=== PATIENT | female | born 1990 | race Caucasian/White ===

== ENCOUNTER 2016-05-18 06:09 | Inpatient (IN) | payer BC ==
[~2016-05-18] VITALS: Ht 160 cm; Wt 133.5 kg
[2016-05-18 06:24] VITALS: Ht 160 cm; Wt 133.5 kg
[2016-05-18 06:26] VITALS: BP 124/78; PULSE 110; RESP 18
[2016-05-18] MEDS ORDERED: PREN1TAB62 PO (06:28)
[2016-05-18] MEDS ORDERED: FERR325C PO (06:29)
[2016-05-18] MEDS ORDERED: CALC600T11 PO (06:29)
[2016-05-18] MEDS ORDERED: LACTATED RINGER'S 1,000 ML IV PRN (07:57)
[2016-05-18] MEDS ORDERED: CARBOPROST 250 MCG INJ IM PRN (08:00)
[2016-05-18] MEDS ORDERED: METHYLERGONOVINE 0.2 MG INJ IM PRN (08:00)
[2016-05-18] MEDS ORDERED: OXYTOCIN 30 UNITS/LR 500 ML IV SCH ×3 (08:00)
[2016-05-18] MEDS ORDERED: OXYTOCIN 30 UNITS/LR 500 ML IV PRN (08:00)
[2016-05-18] MEDS ORDERED: MISOPROSTOL 200 MCG TAB PR PRN (08:00)
[2016-05-18] MEDS ORDERED: BUTORPHANOL 2 MG INJ IV PRN (08:00)
[2016-05-18] MEDS ORDERED: IBUPROFEN 600 MG TAB PO PRN (08:00)
[2016-05-18] MEDS ORDERED: LIDOCAINE 1% (MPF) 30 ML INJ INJ PRN (08:00)
[2016-05-18] MEDS ORDERED: AMPICILLIN 2 GM/NS (PMX) 100 ML IV ONE (08:00)
[2016-05-18] MEDS: LACTATED RINGER'S 1,000 ML IV SCH ×3 (08:17→23:00)
[2016-05-18 08:46] LABS: BASOPHIL # 0.1 10^3/ul (0.0-0.1); BASOPHILS % 0.5 % (0.0-2.0); EOSINOPHILS % 0.3 % (0.0-7.0); HEMATOCRIT 39.9 % (37.0-47.0); HEMOGLOBIN 13.4 g/dl (12.0-16.0); LYMPHOCYTES # 1.9 10^3/ul (0.8-2.9); LYMPHOCYTES % 16.5 % (15.0-51.0); MEAN CORPUSCULAR HEMOGLOBIN 29.4 pg (29.0-33.0); MEAN CORPUSCULAR HGB CONC 33.6 g/dl (32.0-37.0); MEAN CORPUSCULAR VOLUME 87.7 fl (82.0-101.0); MEAN PLATELET VOLUME 8.3 fl (7.4-10.4); MONOCYTE # 0.7 10^3/ul (0.3-0.9); MONOCYTES % 6.4 % (0.0-11.0); NEUTROPHILS % 76.3 % (39.0-77.0); PLATELET COUNT 238 10^3/UL (140-440); RED BLOOD COUNT 4.54 10^6/ul (4.20-5.40); RED CELL DISTRIBUTION WIDTH 14.5 % (11.5-14.5); UNCORRECTED WBC 11.8 10^3/ul (4.8-10.8); WHITE BLOOD COUNT 11.8 10^3/ul (4.8-10.8)
[2016-05-18 08:48] LABS: CONDITION 1; LH ANALYZER COMMENTS 1
--- NOTE | 2016-05-18 08:50 | HP ---
Date/Time of Note Date/Time of Note DATE: 05/18/16 TIME: 08:43 OB - History Hx of Present Free Text/Dictation at 38 weeks in labor Care: Good Care Ultrasounds: Normal mid trimester US Obstetrical Complications: None Medical Complications: None Past Family/Social History * Past Medical, Surgical, Family and Obstetric Histories reviewed from chart. OB Admission Exam Vital Signs Vital Signs Vital Signs Date Time Temp Pulse Resp B/P Pulse Ox O2 Delivery O2 Flow Rate FiO2 05/18/16 06:26 98.5 110 18 124/78 Room Air Physical Exam HEENT: WNL Heart: Rhythm Normal Lungs: Clear, Equal Abdomen: WNL Extremities: Normal Reflexes: Normal Cervical Dilatation: 3cm Effacement: 50% Station: -1 Membranes: Ruptured Amniotic Fluid: Clear Heart Rate: 130's Accelerations: Accelerations Present Decelerations: No Decelerations Varibility: Marked Intensity: Moderate OB Assessment/Plan Reason for admission: active labor Plan: Expectant Management STEPHANY ISBELL MD May 18, 2016 08:50
[2016-05-18 08:56] LABS: ALBUMIN 3.3 g/dl (3.3-4.9)
[2016-05-18 08:57] LABS: POTASSIUM 4.6 mmol/L (3.5-5.1)
[2016-05-18 08:59] LABS: BILIRUBIN,INDIRECT 0.1 mg/dl (0-1.1); BILIRUBIN,TOTAL 0.1 mg/dl (0.2-1.3); CREATININE 0.56 mg/dl (0.44-1.00)
[2016-05-18 09:00] LABS: ALBUMIN/GLOBULIN RATIO 1.03; CALCIUM 9.7 mg/dl (8.4-10.2); TOTAL PROTEIN 6.5 g/dl (6.1-8.1); URIC ACID 4.9 mg/dl (3.1-7.9)
[2016-05-18 09:01] LABS: INR 0.99; PROTIME 13.1 Sec (12.2-14.2)
[2016-05-18 09:02] LABS: PARTIAL THROMBOPLASTIN TIME 30.6 Sec (25.0-35.0)
[2016-05-18] MEDS ORDERED: FENTAnyl 2MCG/ML-ROPIV 0.2% 100 ML ONE (09:59)
[2016-05-18] MEDS ORDERED: FENTAnyl 50 MCG/ML VIAL ONE (10:00)
[2016-05-18] MEDS: AMPICILLIN 1 GM/NS (PMX) 50 ML IV SCH ×4 (11:30→20:08)
[2016-05-18] MEDS ORDERED: FENTAnyl 2MCG/ML-ROPIV 0.2% 100 ML BAG EPI SCH (11:30)
[2016-05-18] MEDS ORDERED: NALOXONE (0.4 MG/ML) INJ IV PRN (11:30)
--- NOTE | 2016-05-18 11:48 | RADRPT ---
PROCEDURE: US OB CLINICAL INDICATION: r/o macrosomia SEE NOTES TECHNIQUE: Multiple sonographic images of the pelvis were obtained. The images were reviewed on a PACS workstation. COMPARISON: None FINDINGS: The cervix is not well visualized. There is a single viable intrauterine gestation. Cardiac activity is present with 146 beats per minute. There is a vertex presentation. The placenta is anterior. There is no evidence for an abruption or placenta previa. There is a markedly low amount of amniotic fluid with an KELVIN = 3.7 cm. Measurements were made in order to determine age. The results are as follows (cm): AC =34.83 FL =7.80 Estimated gestational age by ultrasound of approximately 39 weeks, 2 days. The estimated date of delivery by ultrasound is 05/23/2016. Reported gestational age by LMP of approximately 38 weeks, 6 days. The reported date of delivery by LMP is 05/26/2016. EFW = 3710 grams (76th percentile) IMPRESSION: Single viable intrauterine gestation of approximately 39 weeks, 2 days . The estimated date of delivery is 05/23/2016 . Dating by ultrasound is within 3 days of dating by LMP. Marked oligohydramnios with an amniotic fluid index of 3.7 cm. Estimated weight in the 76th percentile. Limited study without measurement of the biparietal diameter or head circumference. The cervix is not well visualized. RPTAT: EE Physician Dory Date Time Electronically viewed and signed by Physician Dory on 05/18/2016 11:47 /
[2016-05-18 12:21] LABS: ADD UMIC YES; URINE BILIRUBIN (Dip) NEGATIVE (NEGATIVE); URINE BLOOD (Dip) 3+ (NEGATIVE); URINE COLOR LT. YELLOW (YELLOW); URINE GLUCOSE (Dip) NEGATIVE (NEGATIVE); URINE KETONES (Dip) NEGATIVE (NEGATIVE); URINE LEUKOCYTE ESTERASE (Dip) NEGATIVE (NEGATIVE); URINE NITRITE (Dip) NEGATIVE (NEGATIVE); URINE TOTAL PROTEIN (Dip) NEGATIVE (NEGATIVE); URINE UROBILINOGEN (Dip) 0.2 E.U./dL (0.1-1.0)
[2016-05-18 12:49] LABS: BACTERIA,URINE FEW; SQUAMOUS EPITHELIAL CELL,UR FEW
[2016-05-18] MEDS ORDERED: SOD CHLORIDE 0.9% 1,000 ML IV SCH (16:00)
[2016-05-19] VITALS (12 sets, daily range): BP systolic 111–147; BP diastolic 57–88; PULSE 89–110; RESP 18–21
[2016-05-19] MEDS: AMPICILLIN 1 GM/NS (PMX) 50 ML IV SCH ×2 (00:31→04:07)
[2016-05-19] MEDS: LACTATED RINGER'S 1,000 ML IV SCH ×4 (03:26→22:35)
[2016-05-19] MEDS ORDERED: CEFAZOLIN 2 GM/50 ML (PMX) 0 ML IVPB ONE (07:28)
[2016-05-19] MEDS ORDERED: LACTATED RINGER'S 1,000 ML IV SCH (07:32)
[2016-05-19] MEDS ORDERED: CEFAZOLIN 2 GM/50 ML (PMX) 50 ML IVPB ONE (07:36)
[2016-05-19] MEDS ORDERED: CEFAZOLIN 2 GM/50 ML (PMX) 50 ML IV SCH (08:00)
[2016-05-19] MEDS ORDERED: OXYTOCIN 30 UNITS/LR 500 ML IV SCH (08:00)
[2016-05-19] MEDS ORDERED: LIDOCAINE 2%/EPI 30 ML INJ ONE (08:05)
[2016-05-19] MEDS ORDERED: morphine SULFATE/PF (10 MG/10 ML) INJ ONE (08:05)
[2016-05-19] MEDS ORDERED: FENTAnyl 50 MCG/ML VIAL ONE (08:05)
[2016-05-19] MEDS ORDERED: NA BICARBONATE 8.4% 50 ML SYG ONE (08:05)
--- NOTE | 2016-05-19 08:19 | OPR ---
Operative Report Planned Procedure Procedure date May 19, 2016 Performed by: STEPHANY ISBELL MD Assisting provider: ESTRELLA ROSE MD Anesthesia Type: epidural Procedure Description Under satisfactory [] anesthesia, the patient was prepped and draped and placed in a supine position, tilted to the left. Pfannenstiel incision was made, carried through the subcutaneous tissue. Bleeders brought under control with electrocautery. Fascia incised to the length of the incision. Rectus muscles from the fascia, divided midline. Peritoneum exposed, entered through a transverse incision. Exploration of abdomen revealed gravid uterus. Bladder flap was developed. Transverse incision was made in the lower segment of the uterus. Amniotic sac ruptured. [] amniotic fluid noted. [] Nasal oropharyngeal suction was performed. The baby was handed to the team for immediate attention. The placenta was delivered manually intact. Uterine cavity was cleaned with wet sponge and drainage established. Uterus closed in 2 layers using [] in continuous fashion. Peritoneal cavity irrigated with warm saline. Sponge, needle and instrument count reported to be correct. Abdominal peritoneum closed with [] continuously. Rectus muscle approximated with []. Fascia closed with [], and skin closed with bob. Estimated blood loss []mL. Urine bag contained []mL of urine Post-Procedure Findings: Live Baby [], Apgars [] and [], weight [], position [], [] presentation []cord. Pt Condition post procedure: stable Disposition: PACU Physician Certification I, the undersigned physician, hereby certify that I have discussed the procedure described in this consent form with this patient (or the patient's legal personal service representative), including: * The risk and benefits of the procedure; * Any adverse reactions that may reasonably be expected to occur; * Any alternative efficacious methods of treatment which may be medically viable ; * The potential problems that may occur during recuperation; * Potential for blood transfusion and associated risks/benefits; and * Any research or economic interest I may have regarding this treatment. I further certify that the patient/legally responsible person was encouraged to ask question and that all questions were answered. STEPHANY ISBELL MD May 19, 2016 08:19
[2016-05-19] MEDS ORDERED: ONDANSETRON 4 MG INJ IV PRN ×2 (08:30)
[2016-05-19] MEDS ORDERED: MEPERIDINE 25 MG INJ IV PRN (08:30)
[2016-05-19] MEDS ORDERED: PROCHLORPERAZINE 10 MG INJ IV PRN ×2 (08:30)
[2016-05-19] MEDS ORDERED: ZOLPIDEM 5 MG TAB PO PRN (08:30)
[2016-05-19] MEDS ORDERED: NALOXONE (0.4 MG/ML) INJ IV PRN (08:30)
[2016-05-19] MEDS ORDERED: FENTAnyl 50 MCG/ML VIAL IV PRN (08:30)
[2016-05-19] MEDS ORDERED: HYDROmorphONE (0.2 MG/ML) 10ML SYG IV PRN ×3 (08:30)
[2016-05-19] MEDS ORDERED: KETOROLAC 30 MG INJ IV PRN ×2 (08:30)
[2016-05-19] MEDS ORDERED: HYDROmorphONE 1 MG/ML SYG IV PRN (08:30)
[2016-05-19] MEDS ORDERED: DIPHENHYDRAMINE 50 MG INJ IV PRN ×2 (08:30)
[2016-05-19] MEDS ORDERED: PHENYLephrine (100 MCG/ML) 5ML SYG ONE ×2 (08:31→08:41)
[2016-05-19] MEDS ORDERED: ONDANSETRON 4 MG INJ ONE (08:32)
--- NOTE | 2016-05-19 10:33 | DELSUM ---
Delivery Summary A-C Datetime Report Generated by CPN: 05/19/2016 10:33 DELIVERY PERSONNEL Dividend Deposit Entry Clerk: Ogbodu, Christy MATERNAL INFORMATION Delivery Anesthesia: Epidural Medications in Delivery: LR 500ML PITOCIN 30 UNITS Estimated Blood Loss (ml): 600 Placenta Cultured: Yes Maternal Complications: None RN Comments: PRIMARY C/S FOR FAILURE TO PROGRESS LABOR SUMMARY EDC: 05/24/2016 00:00 No. Babies in Womb: 1 Attempted: No Labor Anesthesia: Epidural/ SPINAL LABOR INFORMATION Reason for Induction: Other Reason for Induction- Other: 39.1 Onset of Labor: 05/18/2016 07:00 Onset of Labor: 05/18/2016 07:00 Oxytocin: Induction Group B Beta Strep: Positive Group B Beta Strep: Positive Antibiotics # of Doses: 6 Antibiotics Time of Last Dose: 0400 Steroids Given: None Reason Steroids Not Administered: Not Applicable MEMBRANES Membranes Rupture Method: Artificial Rupture of Membranes: 05/18/2016 08:34 Length of Rupture (hr): 23.88 Amniotic Fluid Color: Clear Amniotic Fluid Color: Clear Amniotic Fluid Amount: Moderate Amniotic Fluid Amount: Moderate Amniotic Fluid Odor: Normal Amniotic Fluid Odor: Normal STAGES OF LABOR Stage 3 hr: 0 Stage 3 min: 0 Total Time in Labor hr: 25 Total Time in Labor hr: 25 Total Time in Labor min: 27 Total Time in Labor min: 27 VAGINAL DELIVERY Episiotomy: None Laceration Extension: N/A CSECTION DELIVERY Primary Indication: Failure of Descent CSection Urgency: Elective CSection Incidence: Primary Labor: Labor Elective: Elective CSection Incision: Lower Uterine Transverse BABY A INFORMATION Infant Delivery Date/Time: 05/19/2016 08:27 Method of Delivery: Born in Route : No : N/A Forceps: N/A Vacuum Extraction: N/A Shoulder Dystocia : N/A SHOULDER DYSTOCIA BABY A Delivery Date/Time: 05/19/2016 08:27 PRESENTATION/POSITION BABY A Presentation: Cephalic Presentation: Cephalic Presentation: Cephalic Presentation: Cephalic Cephalic Presentation: Vertex Breech Presentation: N/A PLACENTA INFORMATION BABY A Placenta Delivery Time : 05/19/2016 08:27 Placenta Method of Delivery: Manual Removal Placenta Status: Delivered SCORES BABY A Heart Rate 1 min: >100 bpm Resp Effort 1 min: Good Cry Reflex Irritability 1 min: Cough/Sneeze/Pulls Away Muscle Tone 1 min: Active Motion Color 1 min: Blue/Pale Resuscitation Effort 1 min: Tactile Stimulation SCORE 1 MIN: 8 Heart Rate 5 min: >100 bpm Resp Effort 5 min: Good Cry Reflex Irritability 5 min: Cough/Sneeze/Pulls Away Muscle Tone 5 min: Active Motion Color 5 min: Body [place], Extremit Blue Resuscitation Effort 5 min: Tactile Stimulation SCORE 5 MIN: 9 INFORMATION BABY A Gestational Age at Delivery: 39.2 Gestational Status: Full Term- 39- 40.6 Weeks Outcome : Liveborn Condition : Stable Sex: Male IDENTIFICATION/MEDS BABY A ID Band Number: [id number] ID Band Location: Right Arm Sensor Applied: Yes Sensor Number: [id number] Sensor Location : Cord Clamp Vitamin K Given : Not Given Erythromycin Given: Not Given WEIGHT/LENGTH BABY A Birthweight (gm): 3655 Infant Weight (lb): 8 Weight (oz): 1 Infant Length (in): 21.00 Length (cm): 53.34 CORD INFORMATION BABY A No. Cord Vessels: 3 Nuchal Cord : N/A Cord Blood Taken: No Banking/Donate Info: NO Infant Suction: Mouth; Nose ASSESSMENT BABY A Infant Complications: Decreased Variability; Multiple Variable Decels; Oligohydramnios Physical Findings at Delivery: Caput Succedaneum; Molding of the Head Infant Respirations: Appears Normal Mill Oiler/ALS Called : No Infant Care By: Aida LEONARD Transferred To: Remains with Mother
--- NOTE | 2016-05-19 10:35 | OPRPT ---
Intraop Record Datetime Report Generated by CPN: 05/19/2016 10:34 Datetime: 05/19/2016 09:30 Sequential Compression Device: Yes Datetime: 05/19/2016 09:15 Sequential Compression Device: Yes Datetime: 05/19/2016 09:00 Sequential Compression Device: Yes Datetime: 05/19/2016 08:30 OR Number: 2 TIMES/PROCEDURE Arrive OR: 05/19/2016 08:00 Depart OR: 05/19/2016 09:04 Anesthesia Start: 05/19/2016 08:04 Anesthesia End: 05/19/2016 09:04 Surgery Start: 05/19/2016 08:25 Surgery End: 05/19/2016 08:45 Preoperative Dx: 39.2 PRIMARY C/S FOR FAILURE TO PROGRESS Surgical Procedure: Section Surgical Procedure Other: NONE Postoperative Dx: SAME Uterine Incision: 05/19/2016 08:26 PERSONNEL Surgeon: Eliel Fitzpatrick Scrub: Gonzalo Cohen Anesthesia Care Provider: Ashtyn Dash Infant Care: See Delivery Summary for Infant Care Providers Anesthesia Type: Spinal ASA Level: II RISK FOR INJURY Mode of Arrival: Bed Procedure Time Out: Correct Patient Identity; Correct Side and Site are Marked (if applicable); Acc urate Procedure Consent Form; Agreement on Procedure to be Done; Correct Patient Position; Addressed Need to Administer Antibiotics or Fluids for Irrigation; Safety Precautions Based on Patient Histor y or Medication Use; Allergies Reviewed Preoperative Information: Preoperative Checklist Reviewed; Allergies Reviewed; NPO Status Verified RISK FOR ANXIETY/KNOW DEFICIT Emotional Status: Calm/Relaxed Interventions: Provided Education Based on Age and Identified Needs; Communicated Patient Concerns to Appropriate Members of the Health Care Team; Explained Sequence of Events and Perioperative Routi ne; Evaluated Response to Instructions RISK FOR PAIN Pain Teaching: Instructed on Pain Scale Pain Scale: 5.0 Pain Location: PERINUEM PREOPERATIVE OUTCOMES Preoperative Outcomes: Verbalizes/Indicates Decreased Anxiety, Ability to [place], Understanding of Pr ocedure and Sequence of Events. Questions Answered; Demonstrates Adequate Pain Management; Verbaliz es Comfort Related to Transfer/Transport RISK FOR INFECTION Skin Pre-Operative Site: Intact Clip: Clip Clip Location: LOWER ABDOMEN Prep: Yes Prep By: MAGDALENE RN Prep Solution: Chlorohexadine Catheter: Price Catheter Size: 16 Catheter Inserted By: MAGDALENE Surgical Wound Class: [id number] Dressing Type: Secured Gauze Other Dressing Types: 4X4,ABD PAD, PAPER TAPE Risk for Impaired Skin Integrity Position in OR: Supine Bony Prominences Protection: Arms Tucked/Padded Risk for Hypothermia Warming Interventions: Warm Pryor(s); Warm Irrigation Warming Unit Temp Settin.0 Warming Device Number: [id number] Warming [place] Applied by: Risk for Injury Safety Straps Applied: Legs Sequential Compression Device: Yes Electrosurgical Unit: Yes Electrosurgical Unit Number: [id number] exp Bipolar Number: [id number] Coag Number: [id number] Cut Number: 55 1st Count Sponge Count: Correct Needle Count: Correct Blade Count: Correct Instrument Count: Correct 2nd Count Sponge Count: Correct Needle Count: Correct Blade Count: Correct Instrument Count: Correct 3rd Count Sponge Count: Correct Needle Count: Correct Blade Count: Correct Instrument Count: Not Done Final Count Sponge Count 4: Correct Needle Count 4: Correct Blade Count 4: Correct Surgeon Acknowledged Count: Yes Final Count Resolution: Count Correct Intraoperative Data Equipment: Non-Invasive Blood Pressure; Pulse Oximeter; EKG; Temp Monitor; Warming [place] Blood Products Given: N/A Implants/Prosthesis Implants/Prosthesis: N/A Grafts: N/A Irrigation Irrigants: NACL; Sterile H2O Irrigation Amount: 2L Specimens Specimens: Yes Specimen Type: Placenta Disposition: PATHOLOGY Postoperative Skin: Warm; Dry Pain Scale: 0 Condition: Awake; Alert Temperature: 97.9 Operative Outcomes: Patient's Surgery Performed Using Aseptic Technique and in a Manner to Prevent Cross-Contamination; Skin Remains Smooth, Intact, Non-reddened, Non-irritated, Free of Bruising; Cor e Body Temperature Remains in Expected Range Transfer To: Other Other: L_D Datetime: 05/18/2016 06:30 Drug Allergies/Reactions: No Known Allergy (05/18/2016) Datetime: 05/18/2016 06:28 Food Allergies/Reactions: NONE Latex Allergies/Reactions: No Latex Allergies
--- NOTE | 2016-05-19 10:35 | DELSUM ---
Delivery Summary A-C Datetime Report Generated by CPN: 05/19/2016 10:34 DELIVERY PERSONNEL Manager Pet: Ogbodu, Christy MATERNAL INFORMATION Delivery Anesthesia: Epidural Medications in Delivery: LR 500ML PITOCIN 30 UNITS Estimated Blood Loss (ml): 600 Placenta Cultured: Yes Maternal Complications: None RN Comments: PRIMARY C/S FOR FAILURE TO PROGRESS LABOR SUMMARY EDC: 05/24/2016 00:00 No. Babies in Womb: 1 Attempted: No Labor Anesthesia: Epidural/ SPINAL LABOR INFORMATION Reason for Induction: Other Reason for Induction- Other: 39.1 Onset of Labor: 05/18/2016 07:00 Onset of Labor: 05/18/2016 07:00 Oxytocin: Induction Group B Beta Strep: Positive Group B Beta Strep: Positive Antibiotics # of Doses: 6 Antibiotics Time of Last Dose: 0400 Steroids Given: None Reason Steroids Not Administered: Not Applicable MEMBRANES Membranes Rupture Method: Artificial Rupture of Membranes: 05/18/2016 08:34 Length of Rupture (hr): 23.88 Amniotic Fluid Color: Clear Amniotic Fluid Color: Clear Amniotic Fluid Amount: Moderate Amniotic Fluid Amount: Moderate Amniotic Fluid Odor: Normal Amniotic Fluid Odor: Normal STAGES OF LABOR Stage 3 hr: 0 Stage 3 min: 0 Total Time in Labor hr: 25 Total Time in Labor hr: 25 Total Time in Labor min: 27 Total Time in Labor min: 27 VAGINAL DELIVERY Episiotomy: None Laceration Extension: N/A CSECTION DELIVERY Primary Indication: Failure of Descent CSection Urgency: Elective CSection Incidence: Primary Labor: Labor Elective: Elective CSection Incision: Lower Uterine Transverse BABY A INFORMATION Infant Delivery Date/Time: 05/19/2016 08:27 Method of Delivery: Born in Route : No : N/A Forceps: N/A Vacuum Extraction: N/A Shoulder Dystocia : N/A SHOULDER DYSTOCIA BABY A Delivery Date/Time: 05/19/2016 08:27 PRESENTATION/POSITION BABY A Presentation: Cephalic Presentation: Cephalic Presentation: Cephalic Presentation: Cephalic Cephalic Presentation: Vertex Breech Presentation: N/A PLACENTA INFORMATION BABY A Placenta Delivery Time : 05/19/2016 08:27 Placenta Method of Delivery: Manual Removal Placenta Status: Delivered SCORES BABY A Heart Rate 1 min: >100 bpm Resp Effort 1 min: Good Cry Reflex Irritability 1 min: Cough/Sneeze/Pulls Away Muscle Tone 1 min: Active Motion Color 1 min: Blue/Pale Resuscitation Effort 1 min: Tactile Stimulation SCORE 1 MIN: 8 Heart Rate 5 min: >100 bpm Resp Effort 5 min: Good Cry Reflex Irritability 5 min: Cough/Sneeze/Pulls Away Muscle Tone 5 min: Active Motion Color 5 min: Body [place], Extremit Blue Resuscitation Effort 5 min: Tactile Stimulation SCORE 5 MIN: 9 INFORMATION BABY A Gestational Age at Delivery: 39.2 Gestational Status: Full Term- 39- 40.6 Weeks Outcome : Liveborn Condition : Stable Sex: Male IDENTIFICATION/MEDS BABY A ID Band Number: [id number] ID Band Location: Right Arm Sensor Applied: Yes Sensor Number: [id number] Sensor Location : Cord Clamp Vitamin K Given : Not Given Erythromycin Given: Not Given WEIGHT/LENGTH BABY A Birthweight (gm): 3655 Infant Weight (lb): 8 Weight (oz): 1 Infant Length (in): 21.00 Length (cm): 53.34 CORD INFORMATION BABY A No. Cord Vessels: 3 Nuchal Cord : N/A Cord Blood Taken: No Banking/Donate Info: NO Infant Suction: Mouth; Nose ASSESSMENT BABY A Infant Complications: Decreased Variability; Multiple Variable Decels; Oligohydramnios Physical Findings at Delivery: Caput Succedaneum; Molding of the Head Infant Respirations: Appears Normal Single Needle Operator/ALS Called : No Infant Care By: Aida LEONARD Transferred To: Remains with Mother
[2016-05-19] MEDS ORDERED: METHYLERGONOVINE 0.2 MG INJ IM PRN (12:30)
[2016-05-19] MEDS ORDERED: ACETAMINOPHEN/CODEINE #3 TAB PO PRN (12:30)
[2016-05-19] MEDS ORDERED: OXYTOCIN 30 UNITS/LR 500 ML IV PRN (12:30)
[2016-05-19] MEDS ORDERED: CARBOPROST 250 MCG INJ IM PRN (12:30)
[2016-05-19] MEDS ORDERED: LANOLIN 7 GM TUBE TOP PRN (12:30)
[2016-05-19] MEDS ORDERED: NA PHOSPHATE/BIPHOS 133 ML ENEMA PR PRN (12:30)
[2016-05-19] MEDS ORDERED: MISOPROSTOL 200 MCG TAB PR PRN (12:30)
[2016-05-19] MEDS ORDERED: NACL 0.9% 3 ML SYG IV SCH (12:30)
[2016-05-19] MEDS: OXYTOCIN 30 UNITS/LR 500 ML IV SCH ×2 (12:44→17:26)
[2016-05-19] MEDS: IBUPROFEN 800 MG TAB PO SCH ×2 (14:00→22:00)
[2016-05-19] MEDS: HYDROmorphONE 1 MG/ML SYG IV PRN (14:09)
[2016-05-20] VITALS: BP 128/76; PULSE 112; RESP 18
[2016-05-20 03:59] VITALS: BP 122/75; PULSE 108
[2016-05-20] MEDS: IBUPROFEN 800 MG TAB PO SCH ×3 (06:00→22:14)
[2016-05-20] MEDS: HYDROmorphONE 1 MG/ML SYG IV PRN (06:55)
[2016-05-20] MEDS: LACTATED RINGER'S 1,000 ML IV SCH ×2 (07:01→20:18)
[2016-05-20 07:38] LABS: EOSINOPHILS % 0.2 % (0.0-7.0); HEMATOCRIT 32.4 % (37.0-47.0); HEMOGLOBIN 10.9 g/dl (12.0-16.0); LYMPHOCYTES % 6.3 % (15.0-51.0); MEAN CORPUSCULAR HEMOGLOBIN 29.6 pg (29.0-33.0); MEAN CORPUSCULAR HGB CONC 33.8 g/dl (32.0-37.0); MEAN CORPUSCULAR VOLUME 87.7 fl (82.0-101.0); MONOCYTE # 0.7 10^3/ul (0.3-0.9); MONOCYTES % 4.1 % (0.0-11.0); NEUTROPHIL # 14.9 10^3/ul (1.6-7.5); NEUTROPHILS % 89.4 % (39.0-77.0); PLATELET COUNT 156 10^3/UL (140-440); RED CELL DISTRIBUTION WIDTH 15.3 % (11.5-14.5); UNCORRECTED WBC 16.6 10^3/ul (4.8-10.8); WHITE BLOOD COUNT 16.6 10^3/ul (4.8-10.8)
[2016-05-20 07:43] LABS: CONDITION 1; LH ANALYZER COMMENTS 1
[2016-05-20 08:06] VITALS: BP 118/65; PULSE 101; RESP 18
[2016-05-20] MEDS: OXYCODONE/ACETAMINOPHEN (5/325) TAB PO PRN (08:53)
[2016-05-20] MEDS ORDERED: INFLUENZA VIRUS VACCINE 0.5 ML (DISPENSING) IM* ONE (09:00)
--- NOTE | 2016-05-20 14:54 | PN ---
Date/Time of Note Date/Time of Note DATE: 05/20/16 TIME: 14:51 OB Subjective Subjective Subjective Patinet tolerated regular diet. Passed flatus, Denies any nausea or vomiting, Ambulated. Breast feeding. OB Objective Objective Objective GA: A&O, NAD Abdomen: Soft, appropriate tenderness over the section incision Dressing, clean, dry and intact Lungs: CTA CV: RRR Extremities: No calf tenderness, no click, no edema Hematology - 72 Hrs Test 05/18/16 08:10 05/20/16 07:24 Basophils # 0.110^3/ul (0.0-0.1) 0.010^3/ul (0.0-0.1) Basophils % 0.5% (0.0-2.0) 0.0% (0.0-2.0) Blood Morphology Comment Eosinophils # 0.010^3/ul (0.0-0.5) 0.010^3/ul (0.0-0.5) Eosinophils % 0.3% (0.0-7.0) 0.2% (0.0-7.0) Hematocrit 39.9% (37.0-47.0) 32.4% (37.0-47.0) L Hemoglobin 13.4g/dl (12.0-16.0) 10.9g/dl (12.0-16.0) L Lymphocytes # 1.910^3/ul (0.8-2.9) 1.010^3/ul (0.8-2.9) Lymphocytes % 16.5% (15.0-51.0) 6.3% (15.0-51.0) L Mean Corpuscular Hemoglobin 29.4pg (29.0-33.0) 29.6pg (29.0-33.0) Mean Corpuscular Hemoglobin Concent 33.6g/dl (32.0-37.0) 33.8g/dl (32.0-37.0) Mean Corpuscular Volume 87.7fl (82.0-101.0) 87.7fl (82.0-101.0) Mean Platelet Volume 8.3fl (7.4-10.4) 7.0fl (7.4-10.4) L Monocytes # 0.710^3/ul (0.3-0.9) 0.710^3/ul (0.3-0.9) Monocytes % 6.4% (0.0-11.0) 4.1% (0.0-11.0) Neutrophils # 9.010^3/ul (1.6-7.5) H 14.910^3/ul (1.6-7.5) H Neutrophils % 76.3% (39.0-77.0) 89.4% (39.0-77.0) H Nucleated Red Blood Cells # 0.010^3/ul (0.0-0.0) 0.010^3/ul (0.0-0.0) Nucleated Red Blood Cells % 0.0/100WBC (0.0-0.0) 0.0/100WBC (0.0-0.0) Platelet Count 98293^3/UL (140-440) 01000^3/UL (140-440) # Red Blood Count 4.5410^6/ul (4.20-5.40) 3.7010^6/ul (4.20-5.40) L Red Cell Distribution Width 14.5% (11.5-14.5) 15.3% (11.5-14.5) H White Blood Count 11.810^3/ul (4.8-10.8) H 16.610^3/ul (4.8-10.8) #H Chemistry Test 05/18/16 08:10 Alanine Aminotransferase (ALT/SGPT) 19IU/L (13-69) Albumin 3.3g/dl (3.3-4.9) Albumin/Globulin Ratio 1.03 Alkaline Phosphatase 190IU/L (42-121) H Anion Gap 16 (8-16) Aspartate Amino Transf (AST/SGOT) 17IU/L (15-46) Blood Urea Nitrogen 13mg/dl (7-20) Calcium Level 9.7mg/dl (8.4-10.2) Carbon Dioxide Level 21mmol/L (21-31) Chloride Level 107mmol/L (97-110) Creatinine 0.56mg/dl (0.44-1.00) Direct Bilirubin 0.00mg/dl (0.00-0.20) Globulin 3.20g/dl (1.3-3.2) Glucose Level 90mg/dl (70-220) Indirect Bilirubin 0.1mg/dl (0-1.1) Potassium Level 4.6mmol/L (3.5-5.1) Sodium Level 139mmol/L (135-144) Total Bilirubin 0.1mg/dl (0.2-1.3) L Total Protein 6.5g/dl (6.1-8.1) Uric Acid 4.9mg/dl (3.1-7.9) OB Assessment/Plan Other Assessment: S/p section Post op #1 Doing well Mild anemia. post op, asymptomatic Plan: Expectant Management Other plan: Routine post op care continue ambulation BRITNEY FREEMAN MD May 20, 2016 14:54
[2016-05-20 16:00] VITALS: BP 121/60; PULSE 108; RESP 18
[2016-05-20 19:50] VITALS: BP 119/58; PULSE 92; RESP 18
[2016-05-21 04:05] VITALS: BP 120/76; PULSE 90
[2016-05-21] MEDS: LACTATED RINGER'S 1,000 ML IV SCH (04:18)
[2016-05-21] MEDS: IBUPROFEN 800 MG TAB PO SCH ×3 (06:28→22:04)
[2016-05-21 07:30] VITALS: BP 101/57; PULSE 80; RESP 19
--- NOTE | 2016-05-21 09:22 | PN ---
Date/Time of Note Date/Time of Note DATE: 05/21/16 TIME: 09:14 OB Subjective Subjective Subjective Post C Section day 2 Patient is doing well, Ambulatory She is afebrile Abdomen is soft , Fundus is firm Moderate amount of lochia Breasts are soft, Nipples are intact No calf tenderness. Incision is healing well. Breast feeding the new born. BMP - Last Results 05/18/16 08:10 Alanine Aminotransferase (ALT/SGPT) 19, Albumin 3.3, Albumin/Globulin Ratio 1.03 , Alkaline Phosphatase 190 H, Anion Gap 16, Aspartate Amino Transf (AST/SGOT) 17 , Calcium Level 9.7, Direct Bilirubin 0.00, Globulin 3.20, Indirect Bilirubin 0.1, Total Bilirubin 0.1 L, Total Protein 6.5, Uric Acid 4.9 Laboratory Tests Test 05/20/16 07:24 Hematocrit 32.4% Hemoglobin 10.9g/dl Platelet Count 00350^3/UL White Blood Count 16.610^3/ul YOLI GUTIERREZ MD May 21, 2016 09:22
--- NOTE | 2016-05-21 09:48 | DS ---
Date/Time of Note Date/Time of Note DATE: 05/21/16 TIME: 09:47 Discharge Summary Admission/Discharge Info Admit Date/Time May 18, 2016 at 07:11 Discharge Date/Time Final Diagnosis term preg c/s for cpd Hospital Course unremarkable Home Meds Reported Medications Calcium Carbonate* (Calcium Carbonate*) 600 MG Ca Tab, 600 MG PO, TAB 05/18/16 Ferrous Sulfate (Iron) 325 Mg Capsule.er, 325 MG PO, CAP 05/18/16 Vit-Iron Fumarate-FA ( Vitamin Tablet) 1 Each Tablet, 1 TAB PO DAILY, TAB 05/18/16 Pending Labs Laboratory Tests Test 05/21/16 07:41 Lab Scanned Report REFERENCE [id number] STEPHANY ISBELL MD May 21, 2016 09:48
[2016-05-21] MEDS: OXYCODONE/ACETAMINOPHEN (5/325) TAB PO PRN (10:28)
[2016-05-21 16:01] VITALS: BP 127/69; PULSE 69; RESP 19
[2016-05-21 20:00] VITALS: BP 130/78; PULSE 96; RESP 20
[2016-05-22 04:55] VITALS: BP 124/70; PULSE 97; RESP 19
[2016-05-22] MEDS: IBUPROFEN 800 MG TAB PO SCH (05:59)
[2016-05-22 08:15] VITALS: BP 130/76; PULSE 85; RESP 18
[2016-05-22] MEDS ORDERED: MEASLES,MUMPS,RUBELLA VACCINE INJ SC* ONE (09:00)
[2016-05-22] MEDS ORDERED: DIPHTH/TET/ACEL PERTUSS (ADULT) 0.5 ML VIAL IM* ONE (09:00)
[2016-05-22 15:50] VITALS: BP 136/72; PULSE 79; RESP 16
== END 2016-05-22 16:00 | disposition home or self-care (01) | DRG 765 ==
LOC: OBT 06:09 → L-D 06:10 → OBT 07:10 → L-D 07:11 → PP1 05-19 12:33
PROVIDERS: ADMIT Obstetrics & Gynecology; ATTEND Obstetrics & Gynecology
PROC: 10D00Z1 Extraction of Products of Conception, Low, Open Approach (ICD-10-PCS; principal; 2016-05-19 08:30)
PROC: 3E00X4Z Introduction of Serum, Toxoid and Vaccine into Skin and Mucous Membranes, External Approach (ICD-10-PCS; 2016-05-22)
DX: O99.214 Obesity complicating childbirth (principal); Z68.43 Body mass index [BMI] 50.0-59.9, adult; E66.01 Morbid (severe) obesity due to excess calories; Z23 Encounter for immunization; Z3A.39 39 weeks gestation of pregnancy; Z37.0 Single live birth
CPT/HCPCS: 62319; 76815; 80053; 81001; 81003; 84560; 85025; 85610; 85730; 86592; 86900; 86901; 87340; 88307; 90686; 90715; 99464; G0463; J0290; J0690; J1170; J1885; J2274; J2370; J2405; J2590; J3010; J7120

== ENCOUNTER 2016-05-27 06:34 | Inpatient (IN) | payer BC ==
[~2016-05-27] VITALS: Ht 160 cm; Wt 123.0 kg
[~2016-05-27 06:34] MED LIST: CALC600T11 PO; FERR325C PO; PREN1TAB62 PO
[2016-05-27 07:37] LABS: BASOPHIL # 0.1 10^3/ul (0.0-0.1); BASOPHILS % 0.5 % (0.0-2.0); EOSINOPHILS # 0.1 10^3/ul (0.0-0.5); EOSINOPHILS % 0.7 % (0.0-7.0); HEMATOCRIT 34.5 % (37.0-47.0); HEMOGLOBIN 11.6 g/dl (12.0-16.0); LYMPHOCYTES # 1.5 10^3/ul (0.8-2.9); LYMPHOCYTES % 9.7 % (15.0-51.0); MEAN CORPUSCULAR HEMOGLOBIN 29.6 pg (29.0-33.0); MEAN CORPUSCULAR HGB CONC 33.8 g/dl (32.0-37.0); MEAN CORPUSCULAR VOLUME 87.6 fl (82.0-101.0); MEAN PLATELET VOLUME 6.2 fl (7.4-10.4); MONOCYTE # 0.7 10^3/ul (0.3-0.9); MONOCYTES % 4.6 % (0.0-11.0); NEUTROPHIL # 13.3 10^3/ul (1.6-7.5); NEUTROPHILS % 84.5 % (39.0-77.0); PLATELET COUNT 501 10^3/UL (140-440); RED BLOOD COUNT 3.94 10^6/ul (4.20-5.40); RED CELL DISTRIBUTION WIDTH 15.1 % (11.5-14.5); UNCORRECTED WBC 15.7 10^3/ul (4.8-10.8); WHITE BLOOD COUNT 15.7 10^3/ul (4.8-10.8)
[2016-05-27 07:42] LABS: CONDITION 1; LH ANALYZER COMMENTS 1
[2016-05-27 07:46] LABS: ALBUMIN 3.1 g/dl (3.3-4.9)
[2016-05-27 07:47] LABS: POTASSIUM 3.9 mmol/L (3.5-5.1)
[2016-05-27 07:49] LABS: BILIRUBIN,INDIRECT 0.2 mg/dl (0-1.1); BILIRUBIN,TOTAL 0.2 mg/dl (0.2-1.3); CREATININE 0.63 mg/dl (0.44-1.00); TOTAL PROTEIN 6.2 g/dl (6.1-8.1)
[2016-05-27 07:50] LABS: CALCIUM 8.7 mg/dl (8.4-10.2)
[2016-05-27 07:54] LABS: ADD UMIC YES; URINE BILIRUBIN (Dip) NEGATIVE (NEGATIVE); URINE BLOOD (Dip) 3+ (NEGATIVE); URINE COLOR LT. YELLOW (YELLOW); URINE GLUCOSE (Dip) NEGATIVE (NEGATIVE); URINE KETONES (Dip) NEGATIVE (NEGATIVE); URINE LEUKOCYTE ESTERASE (Dip) 2+ (NEGATIVE); URINE NITRITE (Dip) NEGATIVE (NEGATIVE); URINE TOTAL PROTEIN (Dip) 1+ (NEGATIVE); URINE UROBILINOGEN (Dip) 0.2 E.U./dL (0.1-1.0)
[2016-05-27] MEDS ORDERED: SOD CHLORIDE 0.9% 100 ML ONE (08:00)
[2016-05-27] MEDS ORDERED: IOHEXOL 300MG/ML 150 ML BTL ONE (08:00)
[2016-05-27 08:09] LABS: SQUAMOUS EPITHELIAL CELL,UR MODERATE
[2016-05-27 08:10] LABS: BACTERIA,URINE FEW
--- NOTE | 2016-05-27 08:39 | RADRPT ---
PROCEDURE: CT abdomen and pelvis with IV contrast. CLINICAL INDICATION: Abdomen pain. TECHNIQUE: CT scan of the abdomen and pelvis was performed on a [address] scanner. The patient is scanned following the uncomplicated IV administration of 100 cc Omnipaque-300. Coronal and sagit prisca reformatted images were obtained from the axial source images. Images were reviewed on a high-r [employer] PACS workstation. Radiation dose: Total CTDIvol: 23.7 mGy. Total DLP: 1573 mGy-cm. COMPARISON: None available. FINDINGS: CT abdomen: The lung bases are clear. The heart is not enlarged without pericardial thickening or effusion.. The liver is normal in size and density without focal mass or intrahepatic biliary dilatation. The spleen is normal in size and homogeneous in density. The stomach is partially collapsed but is oliva sly unremarkable. The pancreas as visualized is normal. The gallbladder is normal and there is no evidence of biliary dilatation. The adrenal glands are symmetrical and normal. The kidneys are symmetrically normal bilaterally. N o renal calculus or obstructive uropathy or mass lesion is seen.. The aorta is normal in caliber. There is no retroperitoneal lymphadenopathy. The hemant hepatis reg ion is clear. The bowel and mesentery, as visualized, are equally unremarkable. CT pelvis: There is small subcutaneous fluid collection with tiny scattered air bubbles at the lower anterior a bdomen wall of the pelvis. There is no indication of acute appendicitis in the right lower quadrant . The small bowel loops situated within the pelvis are unremarkable. There is 4.2 cm x 3.3 cm left ovarian cyst. There is enlarged uterus with thick endometr ium. The pelvic sidewalls and inguinal regions are clear. There is small fluid in the cul-de-sac of the pelvis. No mass or lymphadenopathy is seen. The urinary bladder is normal. The surrounding osseous structures are unremarkable. No osteolytic or osteoblastic lesion is detect ed. IMPRESSION: 1. Small subcutaneous fluid collection with tiny scattered air bubbles at the lower anterior abdome n of the pelvis, postop vs infectious. Recommend clinical correlation. 2. enlarged uterus with thick endometrium. 3. 4.2 cm x 3.3 cm left ovarian cyst, likely benign luteal cyst. RPTAT: GG .Diego Guzman MD, MD Date Time Electronically viewed and signed by .Diego Guzman MD, MD on 05/27/2016 08:38 .Y/
[2016-05-27] MEDS ORDERED: VANCOMYCIN 1 GM (PMX) 250 ML IVPB SCH (10:30)
[2016-05-27] MEDS ORDERED: ACETAMINOPHEN 325 MG TAB PO PRN (10:30)
[2016-05-27] MEDS ORDERED: PIPER-TAZO 3.375 GM IV (PMX) 100 ML IVPB ONE (10:30)
[2016-05-27] MEDS ORDERED: ONDANSETRON 4 MG INJ IV PRN (10:30)
--- NOTE | 2016-05-27 11:46 | ERD ---
DATE OF SERVICE: HISTORY OF PRESENT ILLNESS: The patient is a 26-year-old female coming in complaining of a C-sectio n wound infection. The patient states she noticed that her site has been bleeding and raven ining over the last 4 or 5 days. The patient's was on 05/19/2016, 8 days ago. She has nino d no fevers, but has increasing pain. She states G1, P1, A0. No other medical problems. She has n ot been applying any medications to the site. PAST MEDICAL HISTORY: Hypertension. ALLERGIES TO MEDICATIONS: DENIES. PAST SURGICAL HISTORY: , tonsillectomy. SOCIAL HISTORY: Denies. REVIEW OF SYSTEMS: A 12-point review of systems was done. Refer to HPI for positives, all other sy stems negative. PHYSICAL EXAMINATION: VITAL SIGNS: Temperature is 99, pulse 102, blood pressure is 131/76, respiratory rate 20, O2 sat 96 % on room air. Pain intensity 2/10. GENERAL: The patient is well-appearing, well-nourished, no acute distress. HEART: Regular rate and rhythm. No murmurs, clicks, rubs or gallops. No S3 or S4. CHEST: Clear to auscultation bilaterally. There are no rales, wheezes or rhonchi. HEENT: Atraumatic. Conjunctivae are pink. Pupils equal, round, and reactive to light. There is no s cleral icterus. Tympanic membranes clear bilaterally. Oropharynx clear. No nystagmus or photophobia . ABDOMEN: Soft, nontender and nondistended. Good bowel sounds. No rebound or guarding. No gross princess tonitis. No gross organomegaly or masses. No King sign or McBurney point tenderness. SKIN: There is a wound site noted with purulent discharge. No dehiscence of the wounds, mild surrounding erythema. The patient has large pannus which overlies site. No lymphati c streaking. Soft, tender to palpation. EMERGENCY ROOM COURSE: The patient had blood work done in the ER. CBC showed a white count of 15.7 with a shift of 84.5, mild anemia of 11.6. The patient's CMP is within normal limits. The patient 's urine showed 2+ leukocytes with 5 to 10 white blood cells, 3+ hemoglobin. The patient had a CT [facility] and pelvis with contrast which showed: 1) Small subcutaneous fluid collection with tiny scat tered air bubbles at the lower anterior abdomen and pelvis, postoperative versus infectious; 2) Pos tpartum enlarged uterus with thickened endometrium; 3) A 4.2 cm x 3.3 cm left ovarian cyst, likely benign luteal cyst. Given there is concern for infection, Dr. Zelaya, laborist [employer], was consu lted and she came to visit patient. Given the patient had complaints of worsening redness and pain with purulence on exam, the patient will be admitted for observation, IV antibiotics in case site be comes more infected. This was discussed with patient. Low suspicion for deep tracking abscess. Th e patient was also given IV antibiotics of Zosyn and vancomycin. DIAGNOSES: 1. Postoperative wound infection, section. 2. Urinary tract infection. MEDICAL DECISION MAKING: The patient's clinical exam is concerning for postop wound infection and C T scan shows probable fluid collection, so the patient will be admitted for observation and IV antib iotics. The patient was stable. I have low suspicion for pyelo, low suspicion for deep tracking ab scess. DISPOSITION: The patient was admitted under the care of Dr. Fitzpatrick for IV antibiotics. The patient was stable at the time of admission and was aware of diagnosis. Dictated By: ELSA MARSHALL PA for CARMEN WHATLEY/MAGDALENO Conf#: [id number] DID#: [id number]
[2016-05-27 11:48] VITALS: TEMP 98.1
[2016-05-27 12:17] VITALS: BP 122/70; PULSE 89; RESP 18; Ht 160 cm; Wt 123.0 kg
[2016-05-27] MEDS: HYDROCODONE/APAP (5/325) TAB PO PRN (15:55)
[2016-05-27] MEDS ORDERED: DOCU250C58 PO (16:05)
[2016-05-27] MEDS ORDERED: ACET1TAB40 PO (16:07)
[2016-05-27 16:26] LABS: BASOPHILS % 0.2 % (0.0-2.0); EOSINOPHILS # 0.1 10^3/ul (0.0-0.5); EOSINOPHILS % 0.6 % (0.0-7.0); HEMATOCRIT 35.3 % (37.0-47.0); HEMOGLOBIN 11.9 g/dl (12.0-16.0); LYMPHOCYTES # 1.7 10^3/ul (0.8-2.9); LYMPHOCYTES % 11.4 % (15.0-51.0); MEAN CORPUSCULAR HEMOGLOBIN 29.6 pg (29.0-33.0); MEAN CORPUSCULAR HGB CONC 33.6 g/dl (32.0-37.0); MEAN CORPUSCULAR VOLUME 88.1 fl (82.0-101.0); MEAN PLATELET VOLUME 5.8 fl (7.4-10.4); MONOCYTE # 0.7 10^3/ul (0.3-0.9); MONOCYTES % 4.6 % (0.0-11.0); NEUTROPHIL # 12.3 10^3/ul (1.6-7.5); NEUTROPHILS % 83.2 % (39.0-77.0); PLATELET COUNT 513 10^3/UL (140-440); RED BLOOD COUNT 4.01 10^6/ul (4.20-5.40); UNCORRECTED WBC 14.8 10^3/ul (4.8-10.8); WHITE BLOOD COUNT 14.8 10^3/ul (4.8-10.8)
[2016-05-27 16:28] LABS: CONDITION 1; LH ANALYZER COMMENTS 1
[2016-05-27 16:44] LABS: CALCIUM 8.9 mg/dl (8.4-10.2); CREATININE 0.62 mg/dl (0.44-1.00)
[2016-05-27] MEDS: GENTAMICIN 80 MG/NS (PMX) 50 ML IVPB SCH (17:01)
[2016-05-27] MEDS: CLINDAMYCIN 900 MG/D5W (PMX) 50 ML IVPB SCH ×2 (18:05→20:35)
[2016-05-27 20:35] VITALS: BP 130/65; RESP 18
--- NOTE | 2016-05-27 20:53 | CONS ---
Date/Time of Note Date/Time of Note DATE: 05/27/16 TIME: 20:53 Assessment/Plan Assessment/Plan Chief Complaint/Hosp Course S/p section 9 days ago small wound opening and bleeding, elevated WBC and CT findings of questionable wound infection Admit Will start on antibiotics Clindamycin and Gentamycin IV q 8 hours CBC tomorrow Expectant management Dr. Fitzpatrick to follow tomorrow. informed. Problems: Consultation Date/Type/Reason Admit Date/Time May 27, 2016 at 10:16 Date of Consultation: May 27, 2016 Type of Consultation: TATTOO IDENTIFIER Reason for Consultation Evaluation for wound infection Hx of Present Illness I was consulated by PA at ED for evaluation of this young lady for post op infection. Patient is a 26 years old , s/p section due to Failure to progress and NRFHT about 9 days ago at this facility by DR. Fitzpatrick. She had non complicated post op course. On POD #3. she was noted to be stable enough to go home, she Presented with complaint of bleeding from the wound this morning to ED. she denied any fever or chills, nausea or vomiting. She is currently breast feeding. Patient had a CT of the abdomen and pelvis in ED that showed evidence of some fluid collection at the anterior abdominal wall under the subcutaneous area, concerning for possible wound infection vs post op changes. Patient reports pain and tenderness in the area of the bleeding from the wound. Her WBC was noted to be elevated with shift to the left. She denies any complication beside obesity during her antepartum course. Denies any GDM or pregestational diabetes. She denies any diarrhea, constipation, fever, chills, or any other symptoms. Subjective hx not possible: other (Patient is well historian) Constitutional: chills, no complaints Eyes: no complaints ENT: no complaints Respiratory: no complaints Cardiovascular: no complaints Gastrointestinal: no complaints Genitourinary: other (Normal post leukia ) Skin: no complaints Neurologic: no complaints Endocrine: no complaints Lymphatic: no complaints Psychological: no complaints Immunologic: no complaints Past Medical History History of HTN that resolved Patient has been taking antihypertension medications and was stopped since her HTN resolved Obesity Past Surgical History History of tonsilectomy History of section 9 days ago Family History Significant Family History: no pertinent family hx Social History Alcohol Use: none Smoking Status: Never smoker Drug Use: none Exam/Review of Systems Vital Signs Vitals Vital Signs Date Time Temp Pulse Resp B/P Pulse Ox O2 Delivery O2 Flow Rate FiO2 05/27/16 20:35 98.6 99 18 130/65 92 05/27/16 12:17 Room Air Exam Constitutional: alert, obese, oriented, well developed Psych: nl mood/affect, no complaints Head: atraumatic, normocephalic Eyes: EOMI, nl conjunctiva, nl lids ENMT: nl external ears & nose, nl lips & teeth, nl nasal mucosa & septum Neck: non-tender, supple Respiratory: clear to auscultation, normal air movement Cardiovascular: nl pulses, regular rate and rhythm Gastrointestinal: nl liver, spleen, other, soft, surgical scars, tender Genitourinary - Female: other (there is low transverse pfanenstiel incision due to recent scar from prior section seen, the edges of the skin in the mid segment is slightly ozzing, upon expressing of the incision in this area , I did not see any drainage or pus. There is no evidence of wound dehiscence or opening except the edges of the skin in the 7 cm in the mid segment is open about 2 mm apart and slight oozing noted. No erythema arround the wound, no evidence of wound cellulitis noted . ) Extremities: normal pulses Neurological: ELECTRONICS RESEARCH ENGINEER II-XII intact, nl mental status, nl speech, nl strength Skin: nl turgor, rash or lesions Results Result Diagram: 05/27/16 1605 05/27/16 1605 Results 24 hrs Laboratory Tests Test 05/27/16 07:10 05/27/16 16:05 Alanine Aminotransferase (ALT/SGPT) 28 Albumin 3.1 L Albumin/Globulin Ratio 1.00 Alkaline Phosphatase 185 H Anion Gap 14 16 Aspartate Amino Transf (AST/SGOT) 19 Basophils # 0.1 0.0 Basophils % 0.5 0.2 Blood Morphology Comment Blood Urea Nitrogen 15 11 Calcium Level 8.7 8.9 Carbon Dioxide Level 27 29 Chloride Level 102 100 Creatinine 0.63 0.62 Direct Bilirubin 0.00 Eosinophils # 0.1 0.1 Eosinophils % 0.7 0.6 Globulin 3.10 Glucose Level 103 97 Hematocrit 34.5 L 35.3 L Hemoglobin 11.6 L 11.9 L Indirect Bilirubin 0.2 Lipase 31 Lymphocytes # 1.5 1.7 Lymphocytes % 9.7 L 11.4 L Mean Corpuscular Hemoglobin 29.6 29.6 Mean Corpuscular Hemoglobin Concent 33.8 33.6 Mean Corpuscular Volume 87.6 88.1 Mean Platelet Volume 6.2 L 5.8 L Monocytes # 0.7 0.7 Monocytes % 4.6 4.6 Neutrophils # 13.3 H 12.3 H Neutrophils % 84.5 H 83.2 H Nucleated Red Blood Cells # 0.0 0.0 Nucleated Red Blood Cells % 0.0 0.0 Platelet Count 501 #H 513 H Potassium Level 3.9 4.0 Red Blood Count 3.94 L 4.01 L Red Cell Distribution Width 15.1 H 15.0 H Sodium Level 139 141 Total Bilirubin 0.2 Total Protein 6.2 Urine Bacteria FEW Urine Bilirubin NEGATIVE Urine Clarity SLIGHTLY CLOUDY Urine Color LT. YELLOW Urine Glucose NEGATIVE Urine Hemoglobin 3+ H Urine Ketones NEGATIVE Urine Leukocyte Esterase 2+ H Urine Microscopic RBC 10-25 Urine Microscopic WBC 5-10 Urine Nitrite NEGATIVE Urine Specific [place] >=1.030 H Urine Squamous Epithelial Cells MODERATE Urine Total Protein 1+ H Urine Urobilinogen 0.2 E.U./dL Urine pH 5.5 White Blood Count 15.7 H 14.8 H Medications Medications Current Medications Acetaminophen/ Hydrocodone Bitart 1 tab 1 tab Q6H PRN PO pain Last administered on 05/27/16 15:55; Admin Dose 1 TAB; Start 05/27/16 at 15:30 Clindamycin HCl/ Dextrose 50 ml @ 50 mls/hr Q8 IVPB Last administered on 20:35; Admin Dose 50 MLS/HR; Start 05/27/16 at 16:30 Gentamicin Sulfate (Gentamicin) 50 ml @ 104 mls/hr Q8H IVPB Last administered on 05/27/16 17:01; Admin Dose 104 MLS/HR; Start 05/27/16 at 17:00 Procedures Procedures PROCEDURE: CT abdomen and pelvis with IV contrast. CLINICAL INDICATION: Abdomen pain. TECHNIQUE: CT scan of the abdomen and pelvis was performed on a [address] scanner. The patient is scanned following the uncomplicated IV administration of 100 cc [id number]. Coronal and sagittal reformatted images were obtained from the axial source images. Images were reviewed on a high-resolution PACS workstation. Radiation dose: Total CTDIvol: 23.7 mGy. Total DLP: 1573 mGy-cm. COMPARISON: None available. FINDINGS: CT abdomen: The lung bases are clear. The heart is not enlarged without pericardial thickening or effusion.. The liver is normal in size and density without focal mass or intrahepatic biliary dilatation. The spleen is normal in size and homogeneous in density. The stomach is partially collapsed but is grossly unremarkable. The pancreas as visualized is normal. The gallbladder is normal and there is no evidence of biliary dilatation. The adrenal glands are symmetrical and normal. The kidneys are symmetrically normal bilaterally. No renal calculus or obstructive uropathy or mass lesion is seen.. The aorta is normal in caliber. There is no retroperitoneal lymphadenopathy. The hemant hepatis region is clear. The bowel and mesentery, as visualized, are equally unremarkable. CT pelvis: There is small subcutaneous fluid collection with tiny scattered air bubbles at the lower anterior abdomen wall of the pelvis. There is no indication of acute appendicitis in the right lower quadrant. The small bowel loops situated within the pelvis are unremarkable. There is 4.2 cm x 3.3 cm left ovarian cyst. There is enlarged uterus with thick endometrium. The pelvic sidewalls and inguinal regions are clear. There is small fluid in the cul-de-sac of the pelvis. No mass or lymphadenopathy is seen. The urinary bladder is normal. The surrounding osseous structures are unremarkable. No osteolytic or osteoblastic lesion is detected. IMPRESSION: 1. Small subcutaneous fluid collection with tiny scattered air bubbles at the lower anterior abdomen of the pelvis, postop vs infectious. Recommend clinical correlation. 2. enlarged uterus with thick endometrium. 3. 4.2 cm x 3.3 cm left ovarian cyst, likely benign luteal cyst. RPTAT: GG .Diego Guzman MD, Date Time Electronically viewed and signed by .Diego Guzman MD, on 05/27/2016 08:38 .Y/ CC: KATTY MARSHALL PA-C, MARYAM MD May 27, 2016 20:53
[2016-05-27] MEDS ORDERED: CLINDAMYCIN 900 MG INJ IV SCH (21:00)
[2016-05-27] MEDS ORDERED: GENTAMICIN 80 MG INJ IV SCH (21:00)
[2016-05-28] MEDS: GENTAMICIN 80 MG/NS (PMX) 50 ML IVPB SCH ×3 (00:16→17:23)
[2016-05-28 05:27] LABS: BASOPHILS % 0.2 % (0.0-2.0); EOSINOPHILS # 0.1 10^3/ul (0.0-0.5); EOSINOPHILS % 0.6 % (0.0-7.0); HEMATOCRIT 34.4 % (37.0-47.0); HEMOGLOBIN 11.6 g/dl (12.0-16.0); LYMPHOCYTES # 1.7 10^3/ul (0.8-2.9); LYMPHOCYTES % 10.3 % (15.0-51.0); MEAN CORPUSCULAR HEMOGLOBIN 29.7 pg (29.0-33.0); MEAN CORPUSCULAR HGB CONC 33.9 g/dl (32.0-37.0); MEAN CORPUSCULAR VOLUME 87.7 fl (82.0-101.0); MONOCYTE # 0.8 10^3/ul (0.3-0.9); MONOCYTES % 4.6 % (0.0-11.0); NEUTROPHIL # 13.9 10^3/ul (1.6-7.5); NEUTROPHILS % 84.3 % (39.0-77.0); PLATELET COUNT 530 10^3/UL (140-440); RED BLOOD COUNT 3.92 10^6/ul (4.20-5.40); RED CELL DISTRIBUTION WIDTH 14.8 % (11.5-14.5); UNCORRECTED WBC 16.4 10^3/ul (4.8-10.8); WHITE BLOOD COUNT 16.4 10^3/ul (4.8-10.8)
[2016-05-28] MEDS: CLINDAMYCIN 900 MG/D5W (PMX) 50 ML IVPB SCH ×2 (05:33→13:47)
[2016-05-28 05:43] LABS: CONDITION 1; LH ANALYZER COMMENTS 1
[2016-05-28 08:18] VITALS: BP 121/77; RESP 18
[2016-05-28] MEDS: HYDROCODONE/APAP (5/325) TAB PO PRN (09:03)
--- NOTE | 2016-05-28 18:23 | HP ---
Date/Time of Note Date/Time of Note DATE: 05/28/16 TIME: 18:20 OB - History Hx of Present Free Text/Dictation PT. IS S/P C/S 9 DAYS AGO HAD LEAKING FROM THE INCSION. PT. WAS ADMITTED BY DR. FREEMAN SHE HAS NO FEVER. VSS ABD SOFT. INCISION IS LEAKING FROM 1 CM BUT NOT OPEN. NO INDURATION OR ERYTHEMIA ON THE ICNSION ADVISED THE PT. TO GO HOME WITHOUT ANTIBIOTICS WILL F/U IN CLINIC Past Family/Social History * Past Medical, Surgical, Family and Obstetric Histories reviewed from chart. OB Admission Exam Vital Signs Vital Signs Vital Signs Date Time Temp Pulse Resp B/P Pulse Ox O2 Delivery O2 Flow Rate FiO2 05/28/16 08:18 97.1 86 18 121/77 98 05/27/16 12:17 Room Air Last 72 hours Lab Results CBC & BMP 05/27/16 07:10 05/27/16 16:05 05/28/16 04:53 Liver Function Test 05/27/16 07:10 Alanine Aminotransferase (ALT/SGPT) 28 Albumin 3.1 L Alkaline Phosphatase 185 H Aspartate Amino Transf (AST/SGOT) 19 Direct Bilirubin 0.00 Total Protein 6.2 STEPHANY ISBELL MD May 28, 2016 18:23
== END 2016-05-28 19:11 | disposition home or self-care (01) | DRG 776 ==
LOC: FTE 06:34 → PP2 10:16
PROVIDERS: ADMIT Obstetrics & Gynecology; ATTEND Obstetrics & Gynecology
DX: O86.0 Infection of obstetric surgical wound (principal); O34.211 Maternal care for low transverse scar from previous cesarean delivery
CPT/HCPCS: 36415; 74177; 80048; 80053; 81001; 81003; 83690; 85025; 96374; 96375; J1580; J2543; J3370; Q9967